=== PATIENT | male | born 1985 | race African-American/Black ===

== ENCOUNTER 2017-03-04 12:23 | Inpatient (IN) | payer OTHER ==
[2017-03-04 13:58] VITALS: BMI 23.2
--- NOTE | 2017-03-04 14:27 | HP ---
Admission [facility] Chief Complaint: i am here for rehab from marijuana Allergies/Adverse Reactions: Allergies Allergy/AdvReac Type Severity Reaction Status Date / Time No Known Allergies Allergy Verified 03/04/17 15:11 History of Present Illness: this 31 years old male with marijuana dependence seeking help for rehab,last treatment 2008 congenital deafness right ,hearing loss left epilepsy since childhood nicotine dependence depression longest period of sobriety 2 years Exam Limitations: No Limitations - Ebola screening Have you traveled outside of the country in the last 21 days: No Have you had contact with anyone from an Ebola affected area: No Have you been sick,other than usual withdrawal symptoms: No Do you have a fever: No - Review of Systems Constitutional: No Symptoms Reported EENT: reports: Other (congenital deaf ness right ear,hard of hearing left) Respiratory: reports: No Symptoms reported Cardiac: reports: No Symptoms Reported GI: reports: No Symptoms Reported : reports: No Symptoms Reported Musculoskeletal: reports: No Symptoms Reported Integumentary: reports: No Symptoms Reported Neuro: reports: Other (congenital deaf nesss of right earmhard of hearing left seizure) Endocrine: reports: No Symptoms Reported Hematology: reports: No Symptoms Reported Psychiatric: reports: No Sypmtoms Reported, Mood/Affect Appropiate, Orientated x3, Depressed Patient History - Patient Medical History Hx Anemia: No Hx Asthma: No Hx Chronic Obstructive Pulmonary Disease (COPD): No Hx Cancer: No Hx Cardiac Disorders: No Hx Congestive Heart Failure: No Hx Hypertension: No Hx Hypercholesterolemia: No Hx Pacemaker: No HX Cerebrovascular Accident: No Hx Seizures: Yes (on depakote,keppra,vampat) Hx Dementia: No Hx Diabetes: No Hx Gastrointestinal Disorders: No Hx Liver Disease: No Hx Genitourinary Disorders: No Hx Sexually Transmitted Disorders: No Hx Renal Disease (ESRD): No Hx Thyroid Disease: No Hx Human Immunodeficiency Virus (HIV): No (last 2004 negative) Hx Hepatitis C: No Hx Depression: Yes Hx Suicide Attempt: No Hx Bipolar Disorder: No Hx Schizophrenia: No Other Medical History: no suicidal,no homicidal - Patient Surgical History Past Surgical History: No - PPD History Previous Implant?: Yes Documented Results: Negative w/o proof Implanted On Prior [facility] Admission?: No PPD to be Administered?: Yes - Smoking Cessation Smoking history: Current every day smoker Have you smoked in the past 12 months: Yes Aproximately how many cigarettes per day: 10 Cigars Per Day: 0 Initiated information on smoking cessation: Yes 'Breaking Loose' booklet given: 03/04/17 - Substance & Tx. History Hx Alcohol Use: No Hx Substance Use: Yes Substance Use Type: Marijuana Hx Substance Use Treatment: Yes (2008 ) - Substances Abused Marijuana/Hashish Route: Smoking Frequency: Daily Amount used: 3 to 4 blunts Age of first use: 12 Date of Last Use: 03/04/17 Family Disease History - Family Disease History Family History: Denies Admission Physical Exam [facility] - Vital Signs Vital Signs: Vital Signs - 24 hr 03/04/17 13:52 Temperature 97.4 F L Pulse Rate 73 Respiratory 20 Rate Blood Pressure 101/64 - Physical General Appearance: Yes: Within Normal Limits HEENTM: Yes: Within Normal Limits, Other (congenital deafness of right ,hard of hearing left) Respiratory: Yes: Lungs Clear, Normal Breath Sounds, No Respiratory Distress Neck: Yes: Within Normal Limits Breast: Yes: Within Normal Limits Cardiology: Yes: Within Normal Limits, Regular Rhythm, Regular Rate, S1, S2 Abdominal: Yes: Within Normal Limits, Normal Bowel Sounds, Non Tender, Soft Genitourinary: Yes: Within Normal Limits Back: Yes: Within Normal Limits Musculoskeletal: Yes: full range of Motion Extremities: Yes: Within Normal Limits Neurological: Yes: cutter banana room II-XII NML intact, Fully Oriented, Alert, Motor Strength 5/5 Integumentary: Yes: Within Normal Limits Lymphatic: Yes: Within Normal Limits - Diagnostic (1) Cannabis dependence Current Visit: Yes Status: Acute (2) Congenital deafness Current Visit: Yes Status: Acute (3) Hard of hearing Current Visit: Yes Status: Acute (4) Epilepsy Current Visit: Yes Status: Acute (5) Depression Current Visit: Yes Status: Acute Cleared for Admission [facility] - Detox or Rehab Claeared for Rehab Admission: Yes [facility] Breath Alcohol Content Breath Alcohol Content: 0 Urine Drug Screen - Results Drug Screen Negative: No Urine Drug Screen Results: THC-Marijuana
[2017-03-04] MEDS ORDERED: guaiFENesin/D-METHORPHAN HB 10 ML UNIT-DOSE CUPS PO PRN (15:01)
[2017-03-04] MEDS ORDERED: LOPERAMIDE HCL 2 MG CAPSULE PO PRN (15:01)
[2017-03-04] MEDS ORDERED: IBUPROFEN 400 MG TABLET (FP) PO PRN (15:01)
[2017-03-04] MEDS ORDERED: ACETAMINOPHEN 325 MG TABLET (FP) PO PRN (15:01)
[2017-03-04] MEDS ORDERED: MAGNESIUM CITRATE 300 ML BOTTLE PO PRN (15:01)
[2017-03-04] MEDS ORDERED: MAGNESIUM HYDROX 2400MG/30ML ORAL SUSPENSION 30 ML CUP PO PRN (15:01)
[2017-03-04] MEDS ORDERED: diphenhydrAMINE HCL 50 MG CAPSULE PO PRN (15:01)
[2017-03-04] MEDS ORDERED: MAG HYDROX/AL HYDROX/SIMETH 30 ML UNIT-DOSE CUP PO PRN (15:01)
[2017-03-04] MEDS ORDERED: P-EPHED 60MG/TRIPROLIDI 2.5MG TABLET PO PRN (15:01)
[2017-03-04] MEDS ORDERED: hydrOXYzine PAMOATE 50 MG CAPSULE (FP) PO PRN (15:01)
[2017-03-04] MEDS ORDERED: MENTHOL/PHENOL 1 EACH UD MM PRN (15:01)
[2017-03-04 17:23] LABS: MCH 32.1 pg (25.7-33.7); MCHC 34.6 g/dl (32.0-35.9); MEAN CELL VOLUME 92.8 fl (80-96); MEAN PLT VOLUME 9.7 fl (7.5-11.1); PLATELET COUNT 315 K/MM3 (134-434); RDW 14.7 % (11.9-15.9); WHITE BLOOD COUNT 6.4 K/mm3 (4.0-10.0)
[2017-03-04 17:23] LABS: URINE APPEARANCE CLEAR; URINE BILIRUBIN NEGATIVE (NEGATIVE); URINE BLOOD NEGATIVE (NEGATIVE); URINE COLOR YELLOW; URINE GLUCOSE (UA) NEGATIVE (NEGATIVE); URINE KETONE NEGATIVE (NEGATIVE); URINE LEUK ESTERASE NEGATIVE (NEGATIVE); URINE NITRITE NEGATIVE (NEGATIVE); URINE PROTEIN NEGATIVE (NEGATIVE); URINE UROBILINOGEN NEGATIVE mg/dL (0.2-1.0)
[2017-03-04 17:44] LABS: ALBUMIN 4.3 g/dl (3.4-5.0); ANION GAP 8 (8-16); CO2 31 mmol/L (21-32); CREATININE 0.9 mg/dL (0.7-1.3); GLUCOSE,RANDOM 88 mg/dL (74-106); SGOT/AST 12 U/L (15-37); SGPT/ALT 25 U/L (12-78)
[2017-03-04 17:46] LABS: ALK PHOS 48 U/L (45-117); BILIRUBIN,TOTAL 0.4 mg/dL (0.2-1.0); TOT PROT 7.9 g/dl (6.4-8.2)
[2017-03-04] MEDS: VALPROIC ACID 250 MG CAPSULE PO SCH (21:57)
[2017-03-04] MEDS: THIAMINE HCL 100 MG TABLET (FP) PO SCH (21:57)
[2017-03-04] MEDS: LACOSAMIDE 50 MG TABLET PO SCH (21:57)
[2017-03-04] MEDS: LEVETIRACETAM 750 MG PO SCH (21:57)
[2017-03-04] MEDS ORDERED: levETIRAcetam 250 MG TABLET (FP) PO SCH (22:00)
[2017-03-05] MEDS: VALPROIC ACID 250 MG CAPSULE PO SCH ×2 (06:38→21:46)
[2017-03-05] MEDS ORDERED: VALPROIC ACID 250 MG CAPSULE PO SCH (07:00)
--- NOTE | 2017-03-05 10:13 | HP ---
Psychiatrist Admission - Data Date of interview: 03/05/17 Admission source: [facility] Identifying data: This is the third 5N inpatient rehbilitation admission for this 31 year old single unemployed [facility] and food stamps, residing in [facility] alone. Medical History: Patient reports medical history of seizures, last episode on 02/28/17, congenital deafness in right ear and partial hearing loss in left ear. Smokes ciagrettes 5-6 a day. Psychiatric History: Patient reports has been feeling depressed for the past 3 yeras, states he was seen by a psychiatrist at [facility] in [facility] to address his depression, states he was scheduled for the second part of assessment but was referred here for the treatment. Patient reports he has crying speels, feels sad and depressed almost all day, isolative and hopeless and wants to start treatment while here in rehabilitation. Physical/Sexual Abuse/Trauma History: Denies history of abuse. Additional Comment: longest period of sobriety 2 years. Vital Signs: Vital Signs - 24 hr 03/04/17 03/04/17 03/05/17 13:52 20:48 00:43 Temperature 97.4 F L 97.6 F Pulse Rate 73 63 Respiratory 20 18 16 Rate Blood Pressure 101/64 104/61 03/05/17 03/05/17 03:30 07:23 Temperature 97.2 F L Pulse Rate 55 L Respiratory 18 18 Rate Blood Pressure 110/73 Allergies/Adverse Reactions: Allergies Allergy/AdvReac Type Severity Reaction Status Date / Time No Known Allergies Allergy Verified 03/04/17 15:11 Date of last physical exam: 03/04/17 Concur with the findings of this exam: Yes - Substance Abuse/Tx History Hx Alcohol Use: No Hx Substance Use: Yes Substance Use Type: Marijuana (started smoking at age of 12, daily use 3-4 blunts.) Hx Substance Use Treatment: Yes ([facility], [facility] x 2 , 2007 and 2008.) - Admission Criteria Previous failed treatment: Yes Poor recovery environment: Yes Comorbidities: Yes Lacks judgement: Yes Mental Status Exam - Mental Status Exam Alert and Oriented to: Time, Place, Person Cognitive Function: Grossly Intact Patient Appearance: Well Groomed Mood: Depressed, Sad Affect: Appropriate, Mood Congruent, Flat Patient Behavior: Appropriate, Cooperative Speech Pattern: Clear, Appropriate Voice Loudness: Normal Thought Process: Intact, Goal Oriented Thought Disorder: Not Present Hallucinations: Denies Suicidal Ideation: Denies Homicidal Ideation: Denies Insight/Judgement: Fair Sleep: Fair Appetite: Fair Muscle strength/Tone: Normal Gait/Station: Normal Psychiatric Findings - Problem List ([place] 1, 2,3) (1) Cannabis dependence Current Visit: Yes Status: Acute (2) Congenital deafness Current Visit: Yes Status: Acute (3) Epilepsy Current Visit: Yes Status: Acute (4) MDD (major depressive disorder) Current Visit: Yes Status: Acute (5) Nicotine dependence Current Visit: Yes Status: Acute - Initial Treatment Plan Initial Treatment Plan: Discussed with the patient indications and properties of Lexapro and recommended to start treatment, patient agreed with the careplan.
[2017-03-05] MEDS: LACOSAMIDE 50 MG TABLET PO SCH ×2 (10:41→21:45)
[2017-03-05] MEDS: LEVETIRACETAM 750 MG PO SCH ×2 (10:41→21:45)
[2017-03-05] MEDS: PRENATAL VITAMINS W/ FOLIC ACID TABLET (FP) PO SCH (10:42)
[2017-03-05] MEDS: ESCITALOPRAM OXALATE 10 MG TABLET (FP) PO SCH (10:43)
--- NOTE | 2017-03-05 14:50 | EKG ---
Test Reason : Blood Pressure : / mmHG Vent. Rate : 062 BPM Atrial Rate : 062 BPM P-R Int : 138 ms QRS Dur : 092 ms QT Int : 410 ms P-R-T Axes : 084 087 074 degrees QTc Int : 416 ms NORMAL SINUS RHYTHM WITH SINUS ARRHYTHMIA NORMAL ECG NO PREVIOUS ECGS AVAILABLE Confirmed by RAISA HERNANDEZ MD ([id number]) on 03/05/2017 2:49:54 PM Referred By: Confirmed By:RAISA HERNANDEZ MD
[2017-03-05] MEDS: THIAMINE HCL 100 MG TABLET (FP) PO SCH (21:45)
[2017-03-06] MEDS: VALPROIC ACID 250 MG CAPSULE PO SCH ×2 (06:29→21:03)
[2017-03-06] MEDS: PRENATAL VITAMINS W/ FOLIC ACID TABLET (FP) PO SCH (10:30)
[2017-03-06] MEDS: ESCITALOPRAM OXALATE 10 MG TABLET (FP) PO SCH (10:33)
[2017-03-06] MEDS: LEVETIRACETAM 750 MG PO SCH ×2 (10:34→21:03)
[2017-03-06] MEDS: LACOSAMIDE 50 MG TABLET PO SCH ×2 (10:34→21:03)
[2017-03-06] MEDS: THIAMINE HCL 100 MG TABLET (FP) PO SCH (21:04)
[2017-03-07] MEDS: LACOSAMIDE 50 MG TABLET PO SCH ×2 (06:37→21:43)
[2017-03-07] MEDS: VALPROIC ACID 250 MG CAPSULE PO SCH ×2 (06:37→21:44)
[2017-03-07] MEDS: ESCITALOPRAM OXALATE 10 MG TABLET (FP) PO SCH (10:05)
[2017-03-07] MEDS: PRENATAL VITAMINS W/ FOLIC ACID TABLET (FP) PO SCH (10:06)
[2017-03-07] MEDS: LEVETIRACETAM 750 MG PO SCH ×2 (10:06→21:44)
[2017-03-07] MEDS: THIAMINE HCL 100 MG TABLET (FP) PO SCH (21:43)
[2017-03-08] MEDS: VALPROIC ACID 250 MG CAPSULE PO SCH ×2 (06:29→21:41)
[2017-03-08] MEDS: LACOSAMIDE 50 MG TABLET PO SCH ×2 (06:29→21:41)
[2017-03-08] MEDS: PRENATAL VITAMINS W/ FOLIC ACID TABLET (FP) PO SCH (10:09)
[2017-03-08] MEDS: ESCITALOPRAM OXALATE 10 MG TABLET (FP) PO SCH (10:10)
[2017-03-08] MEDS: LEVETIRACETAM 750 MG PO SCH ×2 (10:11→21:42)
[2017-03-08] MEDS: THIAMINE HCL 100 MG TABLET (FP) PO SCH (21:42)
[2017-03-09] MEDS: LACOSAMIDE 50 MG TABLET PO SCH ×2 (06:34→21:36)
[2017-03-09] MEDS: VALPROIC ACID 250 MG CAPSULE PO SCH ×2 (06:34→21:36)
[2017-03-09] MEDS: PRENATAL VITAMINS W/ FOLIC ACID TABLET (FP) PO SCH (09:24)
[2017-03-09] MEDS: LEVETIRACETAM 750 MG PO SCH ×2 (09:24→21:37)
[2017-03-09] MEDS: ESCITALOPRAM OXALATE 10 MG TABLET (FP) PO SCH (09:25)
[2017-03-09] MEDS: THIAMINE HCL 100 MG TABLET (FP) PO SCH (21:36)
[2017-03-10] MEDS: LACOSAMIDE 50 MG TABLET PO SCH ×2 (06:24→21:55)
[2017-03-10] MEDS: VALPROIC ACID 250 MG CAPSULE PO SCH ×2 (06:24→21:55)
[2017-03-10] MEDS: PRENATAL VITAMINS W/ FOLIC ACID TABLET (FP) PO SCH (10:42)
[2017-03-10] MEDS: ESCITALOPRAM OXALATE 10 MG TABLET (FP) PO SCH (10:42)
[2017-03-10] MEDS: LEVETIRACETAM 750 MG PO SCH ×2 (10:43→21:57)
[2017-03-10] MEDS: THIAMINE HCL 100 MG TABLET (FP) PO SCH (21:55)
[2017-03-10] MEDS ORDERED: levETIRAcetam 500 MG TABLET (FP) PO SCH ×2 (22:00)
[2017-03-11] MEDS ORDERED: DIVALPROEX SODIUM 500 MG TABLET E.C. PO SCH (06:00)
[2017-03-11] MEDS ORDERED: VALPROATE SODIUM 250 MG/5 ML UNIT DOSE CUP PO SCH (06:00)
[2017-03-11] MEDS: LEVETIRACETAM 750 MG PO SCH ×2 (06:33→21:56)
[2017-03-11] MEDS: VALPROIC ACID 250 MG PO SCH (06:34)
[2017-03-11] MEDS: LACOSAMIDE 50 MG TABLET PO SCH ×2 (06:35→21:54)
[2017-03-11] MEDS: ESCITALOPRAM OXALATE 10 MG TABLET (FP) PO SCH (10:37)
[2017-03-11] MEDS: PRENATAL VITAMINS W/ FOLIC ACID TABLET (FP) PO SCH (10:37)
[2017-03-11] MEDS: THIAMINE HCL 100 MG TABLET (FP) PO SCH (21:55)
[2017-03-11] MEDS: VALPROIC ACID 250 MG CAPSULE PO SCH (21:55)
[2017-03-12] MEDS: LACOSAMIDE 50 MG TABLET PO SCH ×2 (06:26→22:34)
[2017-03-12] MEDS: VALPROIC ACID 250 MG PO SCH (06:27)
[2017-03-12] MEDS: LEVETIRACETAM 750 MG PO SCH ×2 (06:28→22:34)
[2017-03-12] MEDS: ESCITALOPRAM OXALATE 10 MG TABLET (FP) PO SCH (10:27)
[2017-03-12] MEDS: PRENATAL VITAMINS W/ FOLIC ACID TABLET (FP) PO SCH (10:27)
[2017-03-12] MEDS: THIAMINE HCL 100 MG TABLET (FP) PO SCH (21:53)
[2017-03-12] MEDS: VALPROIC ACID 250 MG CAPSULE PO SCH (22:33)
[2017-03-13] MEDS: LACOSAMIDE 50 MG TABLET PO SCH ×2 (06:08→21:25)
[2017-03-13] MEDS: LEVETIRACETAM 750 MG PO SCH ×2 (06:09→21:57)
[2017-03-13] MEDS: VALPROIC ACID 250 MG PO SCH (06:09)
[2017-03-13] MEDS: PRENATAL VITAMINS W/ FOLIC ACID TABLET (FP) PO SCH (10:46)
[2017-03-13] MEDS: ESCITALOPRAM OXALATE 10 MG TABLET (FP) PO SCH (10:47)
[2017-03-13] MEDS: VALPROIC ACID 250 MG CAPSULE PO SCH (21:21)
[2017-03-13] MEDS: THIAMINE HCL 100 MG TABLET (FP) PO SCH (21:21)
[2017-03-14] MEDS ORDERED: LACOSAMIDE 50 MG TABLET PO SCH (06:00)
[2017-03-14] MEDS: LEVETIRACETAM 750 MG PO SCH ×2 (06:12→21:46)
[2017-03-14] MEDS: VALPROIC ACID 250 MG PO SCH (06:13)
[2017-03-14] MEDS: LACOSAMIDE 50 MG TABLET PO SCH ×2 (06:59→21:45)
[2017-03-14] MEDS: ESCITALOPRAM OXALATE 10 MG TABLET (FP) PO SCH (10:16)
[2017-03-14] MEDS: PRENATAL VITAMINS W/ FOLIC ACID TABLET (FP) PO SCH (10:16)
[2017-03-14] MEDS: THIAMINE HCL 100 MG TABLET (FP) PO SCH (21:45)
[2017-03-14] MEDS: VALPROIC ACID 250 MG CAPSULE PO SCH (21:46)
[2017-03-15] MEDS: LEVETIRACETAM 750 MG PO SCH ×2 (06:34→21:27)
[2017-03-15] MEDS: VALPROIC ACID 250 MG PO SCH (06:34)
[2017-03-15] MEDS: LACOSAMIDE 50 MG TABLET PO SCH ×2 (06:34→21:27)
[2017-03-15] MEDS: PRENATAL VITAMINS W/ FOLIC ACID TABLET (FP) PO SCH (10:25)
[2017-03-15] MEDS: ESCITALOPRAM OXALATE 10 MG TABLET (FP) PO SCH (10:26)
[2017-03-15] MEDS: THIAMINE HCL 100 MG TABLET (FP) PO SCH (21:28)
[2017-03-15] MEDS: VALPROIC ACID 250 MG CAPSULE PO SCH (21:28)
[2017-03-16] MEDS: VALPROIC ACID 250 MG PO SCH (06:52)
[2017-03-16] MEDS: LACOSAMIDE 50 MG TABLET PO SCH ×2 (06:52→21:20)
[2017-03-16] MEDS: LEVETIRACETAM 750 MG PO SCH ×2 (06:53→21:21)
[2017-03-16] MEDS: PRENATAL VITAMINS W/ FOLIC ACID TABLET (FP) PO SCH (10:30)
[2017-03-16] MEDS: ESCITALOPRAM OXALATE 10 MG TABLET (FP) PO SCH (10:30)
[2017-03-16] MEDS: THIAMINE HCL 100 MG TABLET (FP) PO SCH (21:22)
[2017-03-16] MEDS: VALPROIC ACID 250 MG CAPSULE PO SCH (21:23)
[2017-03-17] MEDS: LEVETIRACETAM 750 MG PO SCH ×2 (06:27→21:57)
[2017-03-17] MEDS: VALPROIC ACID 250 MG PO SCH (07:07)
[2017-03-17] MEDS: LACOSAMIDE 50 MG TABLET PO SCH ×2 (07:08→21:54)
[2017-03-17] MEDS: PRENATAL VITAMINS W/ FOLIC ACID TABLET (FP) PO SCH (10:31)
[2017-03-17] MEDS: ESCITALOPRAM OXALATE 10 MG TABLET (FP) PO SCH (10:32)
[2017-03-17] MEDS: VALPROIC ACID 250 MG CAPSULE PO SCH (21:53)
[2017-03-17] MEDS: THIAMINE HCL 100 MG TABLET (FP) PO SCH (21:55)
[2017-03-18] MEDS: LACOSAMIDE 50 MG TABLET PO SCH (06:19)
[2017-03-18] MEDS: LEVETIRACETAM 750 MG PO SCH (06:20)
[2017-03-18] MEDS: VALPROIC ACID 250 MG PO SCH (06:20)
[2017-03-18 07:02] VITALS: BP 118/70; PULSE 65; TEMP 97.5
--- NOTE | 2017-03-18 09:55 | PN ---
Psychiatric Progress Note Vital Signs: Vital Signs Period Temp Pulse Resp BP Sys/Zhang Pulse Ox Last 24 Hr 97.5 F 65 16-18 118/70 Date of Session: 03/18/17 Chief Complaint:: discharge visit HPI: Patient has addressed cannabis, nicotine dependence comorbid MDD. Current Medications: Active Medications Generic Name Dose Route Start Last Admin Trade Name Freq PRN Reason Stop Dose Admin Acetaminophen 650 mg 03/04/17 15:01 Tylenol - PO Q4H PRN PAIN Al Hydroxide/Mg Hydroxide 30 ml 03/04/17 15:01 Mylanta Oral Suspension - PO Q6H PRN DYSPEPSIA Diphenhydramine HCl 50 mg 03/04/17 15:01 Benadryl - PO HSMR1 PRN INSOMNIA Escitalopram Oxalate 5 mg 03/05/17 10:30 03/17/17 10:32 Lexapro - PO 5 mg DAILY JARRELL Administration Eucalyptus/Menthol/Phenol/Sorbitol 1 each 03/04/17 15:01 Cepastat Lozenge - MM Q4H PRN SORE THROAT Guaifenesin 10 ml 03/04/17 15:01 Robitussin Dm - PO Q6H PRN COUGH Hydroxyzine Pamoate 50 mg 03/04/17 15:01 Vistaril - PO Q4H PRN AGITATION Ibuprofen 400 mg 03/04/17 15:01 Motrin - PO Q6H PRN SEVERE PAIN Lacosamide 100 mg 03/14/17 06:30 03/18/17 06:19 Vimpat - PO 100 mg BID@0600,2200 JARRELL Administration Loperamide HCl 4 mg 03/04/17 15:01 Imodium - PO Q6H PRN DIARRHEA Magnesium Citrate 300 ml 03/04/17 15:01 Citroma - PO Q48H PRN CONSTIPATION Magnesium Hydroxide 30 ml 03/04/17 15:01 Milk Of Magnesia - PO DAILY PRN CONSTIPATION Patient's Own Med: 0 each 03/11/17 06:00 03/18/17 06:20 Valproic Acid 250 Mg PO 2 each Capsule DAILY@0600 JARRELL Administration Non-Formulary Med 0 each 03/10/17 22:00 03/18/17 06:20 Levetiracetam 750mg PO 1 each Tablets BID@2200,0600 [facility] Administration Multivit/Folic Acid/Iron 1 tab 03/05/17 10:00 03/17/17 10:31 Vitamins ([facility]) - PO 1 tab DAILY JARRELL Administration Pseudoephedrine/Triprolidine 1 combo 03/04/17 15:01 Actifed - PO TID PRN NASAL CONGESTION Thiamine HCl 100 mg 03/04/17 22:00 03/17/17 21:55 Vitamin B1 - PO 100 mg HS JARRELL Administration Valproic Acid 750 mg 03/04/17 22:00 03/17/17 21:53 Depakene - PO 750 mg HS JARRELL Administration Current Side Effect: No Lab tests ordered: No Lab tests reviewed: Yes Provider note:: Patient has completed today his treatment and met his goals, will continue to address his issues at [facility]. He gained insight into his addiction he is motivated to stay abstinent and follow with every aspects of his outpatient treatment plan. Patient reports he feels much better, more energetic and hopefull, Lexapro was effective as per patient, scripts provided for 30 days, patient is stable for discharge today. Total face to face time:: 20 Mental Status Exam - Mental Status Exam Alert and Oriented to: Time, Place, Person Cognitive Function: Good Patient Appearance: Well Groomed Mood: Hopeful Affect: Appropriate, Mood Congruent Speech Pattern: Clear, Appropriate Voice Loudness: Normal Thought Process: Intact, Goal Oriented Thought Disorder: Not Present Hallucinations: Denies Suicidal Ideation: Denies Homicidal Ideation: Denies Insight/Judgement: Fair Sleep: Well Appetite: Good Muscle strength/Tone: Normal Gait/Station: Normal
[2017-03-18] MEDS: PRENATAL VITAMINS W/ FOLIC ACID TABLET (FP) PO SCH (10:08)
[2017-03-18] MEDS: ESCITALOPRAM OXALATE 10 MG TABLET (FP) PO SCH (10:08)
== END 2017-03-18 10:40 | disposition home or self-care (01) | DRG 772 ==
LOC: YASAS 12:23 → Y5N 15:05
PROVIDERS: ADMIT Psychiatry & Neurology Psychiatry; ATTEND Psychiatry & Neurology Psychiatry
PROC: HZ42ZZZ Group Counseling for Substance Abuse Treatment, Cognitive-Behavioral (ICD-10-PCS; principal; 2017-03-18)
DX: F12.20 Cannabis dependence, uncomplicated (principal); F17.210 Nicotine dependence, cigarettes, uncomplicated; F33.9 Major depressive disorder, recurrent, unspecified; G40.909 Epilepsy, unspecified, not intractable, without status epilepticus; H90.5 Unspecified sensorineural hearing loss
CPT/HCPCS: 36415; 80053; 80164; 81003; 85027; 86593; 93005; 93010